=== PATIENT | male | born 1975 | race Asian ===

== ENCOUNTER 2022-08-15 06:17 | Emergency (ER) | payer OTHER ==
[~2022-08-15] VITALS: Ht 167.6 cm; Wt 90.9 kg
[2022-08-15 07:23] VITALS: BP 163/81
[2022-08-15] MEDS ORDERED: HYDROcodone-ACET 5/325MG TAB PO ONE (08:30)
[2022-08-15] MEDS ORDERED: KETOROLAC TROMETH 30 MG/ML 1ML VIAL IM ONE (09:15)
[2022-08-15] MEDS ORDERED: HYDR-4902 PO (09:31)
[2022-08-15] MEDS ORDERED: IBUP600T28 PO (09:31)
== END 2022-08-15 09:45 | disposition home or self-care (01) ==
LOC: ER 06:17
DX: S83.92XA Sprain of unspecified site of left knee, initial encounter (principal); I10 Essential (primary) hypertension; E78.5 Hyperlipidemia, unspecified; E11.9 Type 2 diabetes mellitus without complications; X58.XXXA Exposure to other specified factors, initial encounter; Y93.89 Activity, other specified; Y92.89 Other specified places as the place of occurrence of the external cause; Y99.8 Other external cause status
CPT/HCPCS: 73562; 96372; 99283; J1885